=== PATIENT | female | born 2000 | race Caucasian/White ===

== ENCOUNTER 2024-12-15 15:40 | Emergency (ER) | payer MEDICAID ==
[~2024-12-15] VITALS: Ht 160 cm; Wt 62.6 kg
[2024-12-15] MEDS ORDERED: ACETAMINOPHEN 325 MG TABLET ONE (16:29)
[2024-12-15] MEDS: ACETAMINOPHEN 325 MG TABLET PO ONE (16:41)
[2024-12-15 16:46] LABS: APPEARANCE,URINE CLEAR (CLEAR); BLOOD, URINE Moderate Ery/uL (NEGATIVE); LEUKOCYTE ESTERASE ,URINE Negative (NEGATIVE); NITRITE, URINE NEGATIVE (NEGATIVE); UGLUCOSE Negative (NEGATIVE)
[2024-12-15 16:47] LABS: ADD URINE CULTURE NO; PREGNANCY TEST URINE QUAL NEGATIVE (NEGATIVE); SQUAMOUS EPITHELIAL CELL,UR Few /HPF (None Seen)
[2024-12-15] MEDS: IV NS 0.9% 1,000 ML BAG IV ONE (17:30)
[2024-12-15] MEDS: KETOROLAC TROMETHAMINE 15 MG/ML VIAL IV ONE (17:30)
[2024-12-15] MEDS ORDERED: KETOROLAC TROMETHAMINE 15 MG/ML VIAL ONE (17:41)
[2024-12-15 17:57] LABS: PLATELET COUNT (AUTO) 259 K/uL (150-450); RED BLOOD CELL COUNT(AUTO) 3.99 MIL/uL (4.0-5.2); RED CELL DISTRIBUTION WIDTH 12.2 % (11.5-15.0); WHITE BLOOD COUNT (AUTO) 8.5 K/uL (4.3-11.0)
[2024-12-15] MEDS ORDERED: IOHEXOL-300 100 ML VIAL IV ONE (18:00)
[2024-12-15] MEDS ORDERED: IV NS 0.9% 250 ML IV ONE (18:00)
[2024-12-15 18:11] LABS: CALCIUM, SERUM 8.6 mg/dL (8.5-10.1); CREATININE 0.7 mg/dL (0.6-1.3); SODIUM SERUM 139.0 mmol/L (136-145); UREA NITROGEN, BLOOD 12.0 mg/dL (7-18)
[2024-12-15 18:16] LABS: ASPARTATE AMINOTRANSFERASE 12.0 U/L (15-37); TOTAL PROTEIN, SERUM 6.7 g/dL (6.4-8.2)
[2024-12-15] MEDS ORDERED: IBUP-1953 PO (18:45)
[2024-12-15 18:56] VITALS: BP 130/70; TEMP 98.4; O2SAT 99
== END 2024-12-15 18:57 | disposition home or self-care (01) ==
LOC: ER 15:49
DX: R10.2 Pelvic and perineal pain (principal); R10.31 Right lower quadrant pain; Z88.0 Allergy status to penicillin; Z88.1 Allergy status to other antibiotic agents
CPT/HCPCS: 99285; 74177; 96374; 76856; 96361; 85025; 80048; 80076; 84703; 81001; 36415; J1885; J7030; J7050; Q9967